=== PATIENT | male | born 1995 | race Caucasian/White ===

== ENCOUNTER 2017-01-06 00:19 | Emergency (ER) | payer OTHER ==
[~2017-01-06] VITALS: Ht 165.1 cm; Wt 63.0 kg
[2017-01-06 00:20] VITALS: Ht 165.1 cm; Wt 63.0 kg
[2017-01-06 00:51] VITALS: BP 137/85; PULSE 75; TEMP 36.9; O2SAT 96
--- NOTE | 2017-01-06 02:36 | EMERGENCY ROOM VISIT NOTE ---
ED Visit Note First contact with patient: 00:33 CHIEF COMPLAINT: Finger laceration HISTORY OF PRESENT ILLNESS: This 21-year-old patient presents to the emergency department after cutting the right second finger on a beer can just prior to arrival. The bleeding has stopped. Denies weakness or numbness of the finger. The patient has full range of motion of the fingers. The patient rates the pain as mild and 2/10. The patient denies any other injuries. The patient's tetanus shot is up to date. REVIEW OF SYSTEMS: A 6 system review of systems was completed with positives and pertinent negatives listed in the HPI. ALLERGIES: None MEDICATIONS: Albuterol PMH: Asthma SOCIAL HISTORY: No drug use PHYSICAL EXAM: Vital Signs: Reviewed Nurse's notes, vital signs stable. GENERAL : Pleasant male, in no acute distress, well developed, well nourished. SKIN: There is a 1 m skin avulsion to the distal aspect of the right second finger that appears clean that does not gape. There is no foreign material in the wound and it looks clean. There is no bleeding. No deep structures such as tendons, bones, or significant blood vessels are seen in the base of the wound. Extension and flexion of the finger is full and strong. Full range of motion of the wrist and other fingers. Capillary refill less than 2 seconds. Normal sensation to light and sharp touch. EMERGENCY DEPARTMENT COURSE: I examined the patient. Using sterile technique the wound was cleansed with Betadine. Nursing applied Steri-Strips and cleansed the area. Patient was advised to let Steri-Strips fall off on their own and then apply bacitracin and bandage until the area heals. He was informed that most likely the skin will fall off. He was advised to return to the ER immediately for signs and symptoms of infection, fevers, pain, worsening signs or symptoms or as needed. The patient was discharged home in good condition. DIAGNOSIS: Skin avulsion right hand second finger DISCHARGE INSTRUCTIONS & TREATMENT: As below Current/Historical Medications No Active Prescriptions or Reported Meds Allergies Coded Allergies: No Known Allergies (Unverified , 01/06/17) Vital Signs Date Time Temp Pulse Resp B/P Pulse Ox O2 Delivery O2 Flow Rate FiO2 01/06/17 00:51 36.9 75 16 137/85 96 01/06/17 00:20 36.9 75 16 137/85 96 Room Air Departure Information Impression Primary Impression: Avulsion of skin of finger Dispostion Home / Self-Care Condition GOOD Prescriptions No Active Prescriptions or Reported Meds Forms HOME CARE DOCUMENTATION FORM, IMPORTANT VISIT INFORMATION Patient Instructions My [facility], ED Avulsion Dermal Additional Instructions Let the Steri-Strips fall off on their own. After they fall off, then apply bacitracin and bandage daily until the skin avulsion heels. Follow-up health services in 2-3 days. Return to ER sooner for fever, redness, drainage, worsening signs or symptoms or as needed.
== END 2017-01-06 00:51 | disposition home or self-care (01) ==
LOC: C.EDB 00:20
DX: S61.210A Laceration without foreign body of right index finger without damage to nail, initial encounter (principal); W45.8XXA Other foreign body or object entering through skin, initial encounter; J45.909 Unspecified asthma, uncomplicated